=== PATIENT | female | born 1965 | race Caucasian/White ===

== ENCOUNTER 2017-07-25 08:19 | Emergency (ER) | payer OTHER ==
[2017-07-25 08:22] VITALS: BMI 31.1
--- NOTE | 2017-07-25 08:46 | PDOC ---
History of Present Illness - General Chief Complaint: Lightheaded Stated Complaint: DIZZY Time Seen by Provider: 07/25/17 08:45 Past History - Past Medical History Allergies/Adverse Reactions: Allergies Allergy/AdvReac Type Severity Reaction Status Date / Time No Known Allergies Allergy Verified 07/25/17 08:22 Home Medications: Ambulatory Orders Levothyroxine [Synthroid] 112 mcg PO DAILY 11/08/11 Albuterol Sulfate Inhaler - [Ventolin HFA Inhaler -] 2 inh PO Q4H #1 inh Ibuprofen [Motrin -] 600 mg PO TID #20 tablet 07/31/15 Oxycodone HCl/Acetaminophen [Percocet 5-325 mg Tablet -] 1 combo PO Q6H PRN #14 tablet MDD 8 tablets 07/31/15 Tamsulosin HCl [Flomax] 0.4 mg PO DAILY #7 capsule 07/31/15 Anemia: No Asthma: No Cancer: No Cardiac Disorders: No CVA: No COPD: No CHF: No Diabetes: No GI Disorders: No Disorders: No Thyroid Disease: Yes - Surgical History Cholecystectomy: Yes - Immunization History Immunization Up to Date: Yes - Suicide/Smoking/Psychosocial Hx Smoking Status: No Smoking History: Never smoked Years of Tobacco Use: 30 Number of Cigarettes Smoked Daily: 5 Hx Alcohol Use: No Drug/Substance Use Hx: No Substance Use Type: None *Physical Exam - Vital Signs Last Vital Signs Temp Pulse Resp BP Pulse Ox 98.1 F 74 18 136/76 99 07/25/17 08:20 07/25/17 08:20 07/25/17 08:20 07/25/17 08:20 07/25/17 08:20
--- NOTE | 2017-07-25 09:19 | PDOC ---
History of Present Illness <Marshall Richard - Last Filed: 07/25/17 11:46> - General History Source: Patient Exam Limitations: No Limitations - History of Present Illness Initial Comments: 07/25/17 11:49 The patient is a 52 year old female, with a significant past medical history of thyroid disease, who presents to the emergency department complaining of dizziness, palpitations, diaphoresis since waking this morning. She notes that the palpitations and diaphoresis has resolved but the dizziness has persisted. She describes her head as "heavy" that has since resolved. Pt notes her dizziness is a lightheadedness that is worse when she is laying down and turning to the left. She reports that she has noticed a decrease in appetite over the last 3 days. denies any vision changes, dysarthria, numbness/tingling/ weakness, neck pain, back pain. The patient denies chest pain, shortness of breath. Denies fever, chills, nausea , vomiting, diarrhea and constipation. Denies dysuria, frequency, urgency and hematuria. Allergies: None Past surgical history: Cholecystectomy Social History: (+)Tobacco use (30 year use). No alcohol or drug use reported <Oscar Zheng - Last Filed: 07/25/17 11:51> - General Chief Complaint: Lightheaded Stated Complaint: DIZZY Time Seen by Provider: 07/25/17 08:45 Past History - Past Medical History Anemia: No Asthma: No Cancer: No Cardiac Disorders: No CVA: No COPD: No CHF: No Diabetes: No GI Disorders: No Disorders: No Thyroid Disease: Yes - Surgical History Cholecystectomy: Yes - Immunization History Immunization Up to Date: Yes - Suicide/Smoking/Psychosocial Hx Smoking Status: No Smoking History: Never smoked Years of Tobacco Use: 30 Number of Cigarettes Smoked Daily: 5 Hx Alcohol Use: No Drug/Substance Use Hx: No Substance Use Type: None <Marshall Richard - Last Filed: 07/25/17 11:46> <Oscar Zheng - Last Filed: 07/25/17 11:51> - Past Medical History Allergies/Adverse Reactions: Allergies Allergy/AdvReac Type Severity Reaction Status Date / Time No Known Allergies Allergy Verified 07/25/17 08:22 Home Medications: Ambulatory Orders Levothyroxine [Synthroid] 112 mcg PO DAILY 11/08/11 Review of Systems - Review of Systems Able to Perform ROS?: Yes Comments:: 07/25/17 11:50 CONSTITUTIONAL: Reported: Diaphoresis No reported: Fever, Chills, Generalized Weakness, Malaise, Loss of Appetite HEENT: No reported: Rhinorrhea, Nasal Congestion, Throat Pain, Throat Swelling, Difficulty Swallowing, Mouth Swelling, Ear Pain, Eye Pain, Visual Changes CARDIOVASCULAR: Reported: Lightheadedness, palpitations No reported: Chest Pain, Syncope, Irregular Heart Rate, Peripheral Edema RESPIRATORY: No reported: Cough, Shortness of Breath, SOB with Exertion, Orthopnea, Wheezing , Stridor, Hemoptysis GASTROINTESTINAL: No reported: Abdominal pain, Abdominal Distension, Nausea, Vomiting, Diarrhea, Constipation, Melena, Hematochezia GENITOURINARY: No reported: Dysuria, Frequency, Urgency, Hesitancy, Flank Pain, Genital Pain MUSCULOSKELETAL: No reported: Myalgia, Arthralgia, Joint Swelling, Back pain, Neck Pain SKIN: No reported: Rash, Itching, Pallor HEMEATOLOGIC/IMMUNOLOGIC: No reported: Easy Bleeding, Easy Bruising, Lymphadenopathy, Frequent infections ENDOCRINE: No reported: Unexplained Weight Gain, Unexplained Weight Loss, Heat Intolerance , Cold Intolerance NEUROLOGIC: No reported: Headache, Focal Weakness, Paresthesias, Vertigo, Lightheadedness, Unsteady Gait, Seizure, Mental Status Changes, Incontinence PSYCHIATRIC: No reported: Anxiety, Depression <Oscar Zheng - Last Filed: 07/25/17 11:51> *Physical Exam - Vital Signs Last Vital Signs Temp Pulse Resp BP Pulse Ox 98.1 F 74 18 136/76 99 07/25/17 08:20 07/25/17 08:20 07/25/17 08:20 07/25/17 08:20 07/25/17 08:20 <Marshall Richard - Last Filed: 07/25/17 11:46> - Vital Signs Last Vital Signs Temp Pulse Resp BP Pulse Ox 98.1 F 74 18 136/76 99 07/25/17 08:20 07/25/17 08:20 07/25/17 08:20 07/25/17 08:20 07/25/17 08:20 - Physical Exam Comments: 07/25/17 11:50 GENERAL: The patient is awake, alert, and fully oriented, Nontoxic - in no acute distress. HEAD: Normocephalic, atraumatic. EYES: extraocular movements intact, sclera anicteric, conjunctiva clear, visual soriano intact ENT: Normal voice, Moist mucous membranes. NECK: Normal range of motion, supple LUNGS: Breath sounds equal, clear to auscultation bilaterally. No wheezes, no rhonchi, no rales. HEART: Regular rate and rhythm, without murmur, rub or gallop. ABDOMEN: Soft, nontender, normoactive bowel sounds. No guarding, no rebound.No CVA tenderness EXTREMITIES: Normal range of motion, no edema. No clubbing or cyanosis. No cords, erythema, or tenderness. PSYCH: Normal mood, normal affect. SKIN: Warm, Dry, normal turgor NEURO: Mental status: The patient is oriented x3. Cranial nerves: Cranial nerves II through XII are intact Motor: The upper extremities are 5 over 5 in all muscle groups. The lower extremities are 5 over 5 in all muscle groups. Negative pronator drift Sensation: Sensation is intact to light touch throughout. romberg negative Cerebellar: Mwokxx-[id number]-ktdj is normal in both upper extremities. rapid alternating movements are normal. Gait: Normal. H <Oscar Zheng - Last Filed: 07/25/17 11:51> Heart Score/ECG Review - ECG Impressions Comment:: 07/25/17 10:26 Twelve-lead EKG was performed and reviewed by me. There is normal sinus rhythm with a normal rate. Rate of 66 The axis is normal. The intervals are normal. nonspecific TWI in lead III <Marshall Richard - Last Filed: 07/25/17 11:46> ED Treatment Course - LABORATORY CBC & Chemistry Diagram: 07/25/17 09:40 07/25/17 09:40 <Marshall Richard - Last Filed: 07/25/17 11:46> - LABORATORY CBC & Chemistry Diagram: 07/25/17 09:40 07/25/17 09:40 - ADDITIONAL ORDERS Additional order review: Laboratory Results 07/25/17 07/25/17 07/25/17 10:54 09:40 09:40 Sodium 141 Potassium 4.2 Chloride 106 Carbon Dioxide 26 Anion Gap 9 BUN 10 Creatinine 0.6 Creat Clearance w eGFR > 60 Random Glucose 90 Calcium 8.8 Total Bilirubin 0.4 D AST 18 ALT 19 Alkaline Phosphatase 66 Total Protein 7.4 Albumin 3.6 TSH 11.50 H Urine Color Straw Urine Appearance Clear Urine pH 5.0 Ur Specific [place] 1.009 Urine Protein Negative Urine Glucose (UA) Negative Urine Ketones Negative Urine Blood 2+ H Urine Nitrite Negative Urine Bilirubin Negative Urine Urobilinogen Negative Ur Leukocyte Esterase Negative Urine WBC (Auto) 2 Urine RBC (Auto) 2 Ur Epithelial Cells Rare Urine Mucus Rare 07/25/17 09:40 RBC 4.25 MCV 69.0 L MCHC 30.9 L RDW 17.9 H D MPV 7.2 L Neutrophils % 63.6 Lymphocytes % 27.7 D Monocytes % 5.7 Eosinophils % 1.8 Basophils % 1.2 - Medications Given in the ED: ED Medications Discontinued Medications Generic Name Dose Route Start Last Admin Trade Name Freq PRN Reason Stop Dose Admin Sodium Chloride 1,000 mls @ 1,000 mls/hr 07/25/17 09:34 07/25/17 09:46 Normal Saline - IV 07/25/17 10:33 1,000 mls/hr .Q1H ONE Administration Ibuprofen 400 mg 07/25/17 11:32 07/25/17 11:40 Motrin - PO 07/25/17 11:33 Not Given ONCE ONE Meclizine HCl 25 mg 07/25/17 10:02 07/25/17 10:18 Antivert - PO 07/25/17 10:03 25 mg ONCE ONE Administration Metoclopramide HCl 10 mg 07/25/17 09:34 07/25/17 09:46 Reglan Injection - IVPUSH 07/25/17 09:35 10 mg ONCE ONE Administration <Oscar Zheng - Last Filed: 07/25/17 11:51> Medical Decision Making - Medical Decision Making 07/25/17 09:19 52y Fhx of thryoid disease, fibroids, presents feeling dizzy since wakening up this morning appro x 3 hrs ago, pt endorses some palpitations, nausea, earlier but that has resolved. endorse some head heaviness that has also resolved. denies an cp, sob, abd pain, vomiting, diarrhea, melena. dizziness is worse when she is laying down and turning her head, but is asypmtomatic currently if sitting in bed. pt was asypmtomatic the past few days without any uri, tinnitus. pts exam is unremarkable including a normal neuro exam suspect peripheral vertigo will ck lbas to r/o anemia, metabolic dernagement will give fluids, meclizine, zofran ua to r/o uti will reassess A portion of this note was documented by scribe services under my direction. I have reviewed the details of the note, within reason, and agree with the documentation with the following case summary and management plan written by me 07/25/17 11:46 The patient's blood work was reviewed it is noted for anemia to 9.1. The patient's blood work otherwise unremarkable, there is 2+ hematuria The patient is feeling improved she is able to ambulate without an ataxic gait or any lightheadedness. We'll discharge patient to follow up with her primary care doctor return precautions were discussed I discussed the physical exam findings, ancillary test results and final diagnoses with the patient. I answered all of the patient's questions. The patient was satisfied with the care received and felt comfortable with the discharge plan and treatment plan. The patient will call their primary care physician within 24 hours to arrange follow-up and will return to the Emergency Department with any new, persistent or worsening symptoms. <Marshall Richard - Last Filed: 07/25/17 11:46> *DC/Admit/Observation/Transfer - Discharge Dispostion Admit: No <Marshall Richard - Last Filed: 07/25/17 11:46> - Attestations Scribe Attestion: 07/25/17 11:50 Documentation prepared by Oscar Zheng, acting as medical staff coordinator for Marshall Richard MD <Oscar Zheng - Last Filed: 07/25/17 11:51> Diagnosis at time of Disposition: Vertigo Anemia Qualifiers: Anemia type: other cause Other causes of anemia: other cause, not classified Qualified Code(s): D64.89 - Other specified anemias - Discharge Dispostion Disposition: HOME Condition at time of disposition: Improved - Referrals Referrals: Landen Marie MD [Staff Physician] - Christal Perez MD [Staff Physician] - Cody Cordero MD [Staff Physician] - - Patient Instructions Printed Discharge Instructions: DI for Vertigo Additional Instructions: Return to the emergency department immediately with ANY new, persistent or worsening symptoms. Your blood work is notable for anemia I suspect this may be due to her heavy periods please follow-up with [facility] doctor. If the meclizine as needed for your dizziness You MUST call and follow up with your doctor tomorrow for further evaluation of your symptoms. Results were discussed with you. Please make sure your doctor reviews the results of your emergency evaluation. Print Language: GREENLANDIC
[2017-07-25] MEDS ORDERED: METOCLOPRAMIDE HCL INJECTION 10 MG/2 ML VIAL IVPUSH ONE (09:34)
[2017-07-25] MEDS ORDERED: SODIUM CHLORIDE 1,000 ML IV ONE (09:34)
[2017-07-25] MEDS ORDERED: METOCLOPRAMIDE HCL INJECTION 10 MG/2 ML VIAL ONE (09:47)
[2017-07-25 09:52] LABS: BASO % 1.2 % (0-2.0); EOS % 1.8 % (0-4.5); HEMATOCRIT 29.4 % (32.4-45.2); HEMOGLOBIN 9.1 GM/dL (10.7-15.3); LYMPH % 27.7 % (8-40); MCH 21.3 pg (25.7-33.7); MCHC 30.9 g/dl (32.0-36.0); MEAN PLT VOLUME 7.2 fl (7.5-11.1); MONO % 5.7 % (3.8-10.2); NEUT % 63.6 % (42.8-82.8); PLATELET COUNT 344 K/MM3 (134-434); RBC 4.25 M/mm3 (3.60-5.2); RDW 17.9 % (11.6-15.6); WHITE BLOOD COUNT 7.1 K/mm3 (4.0-10.0)
[2017-07-25] MEDS ORDERED: MECLIZINE HCL 25 MG TABLET (FP) PO ONE (10:02)
[2017-07-25] MEDS ORDERED: MECLIZINE HCL 25 MG TABLET (FP) ONE (10:14)
[2017-07-25 10:21] LABS: ALBUMIN 3.6 g/dl (3.4-5.0); ALK PHOS 66 U/L (45-117); ANION GAP 9 (8-16); BILIRUBIN,TOTAL 0.4 mg/dL (0.2-1.0); BLOOD UREA NITROGEN 10 mg/dL (7-18); CALCIUM 8.8 mg/dL (8.5-10.1); CHLORIDE 106 mmol/L (98-107); CO2 26 mmol/L (21-32); CREATININE 0.6 mg/dL (0.55-1.02); POTASSIUM 4.2 mmol/L (3.5-5.1); SGOT/AST 18 U/L (15-37); SGPT/ALT 19 U/L (12-78); SODIUM 141 mmol/L (136-145); TOT PROT 7.4 g/dl (6.4-8.2)
[2017-07-25 11:11] LABS: URINE APPEARANCE CLEAR; URINE BILIRUBIN NEGATIVE (<2.0 mg/dL); URINE BLOOD 2+ (NEGATIVE); URINE COLOR STRAW; URINE GLUCOSE (UA) NEGATIVE (NEGATIVE); URINE KETONE NEGATIVE (NEGATIVE); URINE LEUK ESTERASE NEGATIVE (NEGATIVE); URINE NITRITE NEGATIVE (NEGATIVE); URINE PROTEIN NEGATIVE (NEGATIVE); URINE UROBILINOGEN NEGATIVE mg/dL (0.2-1.0)
[2017-07-25 11:17] LABS: EPI CELLS RARE /HPF (FEW); URINE MUCUS RARE
[2017-07-25 11:21] LABS: GLUCOSE,RANDOM 90 mg/dL (74-106)
[2017-07-25] MEDS ORDERED: IBUPROFEN 400 MG TABLET (FP) PO ONE ×2 (11:32→11:39)
[2017-07-25 12:16] VITALS: BP 102/74; PULSE 64; TEMP 98
--- NOTE | 2017-07-26 21:40 | EKG ---
Test Reason : Blood Pressure : / mmHG Vent. Rate : 066 BPM Atrial Rate : 066 BPM P-R Int : 156 ms QRS Dur : 084 ms QT Int : 436 ms P-R-T Axes : 043 014 009 degrees QTc Int : 457 ms NORMAL SINUS RHYTHM NORMAL ECG WHEN COMPARED WITH ECG OF 16-JAN-2012 11:02, VENT. RATE HAS DECREASED BY 34 BPM Confirmed by HAO TRUJILLO MD ([id number]) on 07/26/2017 9:40:20 PM Referred By: Confirmed By:HAO TRUJILLO MD
== END 2017-07-25 12:16 | disposition home or self-care (01) ==
LOC: JER 08:19
PROC: 3E033GC Introduction of Other Therapeutic Substance into Peripheral Vein, Percutaneous Approach (ICD-10-PCS; principal; 2017-07-25)
DX: H81.399 Other peripheral vertigo, unspecified ear (principal); R11.0 Nausea
CPT/HCPCS: 36415; 80053; 81003; 81015; 84443; 85025; 93005; 93010; 99282-25; J7030

== ENCOUNTER 2017-09-23 14:17 | Emergency (ER) | payer OTHER ==
--- NOTE | 2017-09-23 14:28 | PDOC ---
Rapid Medical Evaluation Time Seen by Provider: 09/23/17 14:26 Medical Evaluation: Allergies Allergy/AdvReac Type Severity Reaction Status Date / Time No Known Allergies Allergy Verified 07/25/17 08:22 09/23/17 14:26 I have performed a brief in-person evaluation of this patient. The patient presents with a chief complaint of:facial redness and burning today after using new facial mask today, no sob Pertinent physical exam findings:minimal erythema to cheeks b/l, no facial swelling I have ordered the following:nothing The patient will proceed to the ED for further evaluation. 09/23/17 14:39 Discharge Disposition - Diagnosis Allergic reaction Qualifiers: Encounter type: initial encounter Qualified Code(s): T78.40XA - Allergy, unspecified, initial encounter - Discharge Dispostion Disposition: ELOPED Condition at time of disposition: Good - Referrals - Patient Instructions Printed Discharge Instructions: DI for General Allergic Reactions Additional Instructions: Your symptoms are most likely from the anti-aging cream you used. Please refrain from cream and take Benadryl and Tylenol as needed - Post Discharge Activity
[2017-09-23 14:30] VITALS: BP 134/68; PULSE 77; TEMP 97.7; BMI 22.9
--- NOTE | 2017-09-23 14:36 | PDOC ---
History of Present Illness - General Stated Complaint: ALLERGIC REACTION Time Seen by Provider: 09/23/17 14:26 History Source: Patient - History of Present Illness Timing/Duration: reports: just prior to arrival Location: reports: face Past History - Past Medical History Allergies/Adverse Reactions: Allergies Allergy/AdvReac Type Severity Reaction Status Date / Time No Known Allergies Allergy Verified 07/25/17 08:22 Home Medications: Ambulatory Orders Levothyroxine [Synthroid] 112 mcg PO DAILY 11/08/11 Anemia: No Asthma: No Cancer: No Cardiac Disorders: No CVA: No COPD: No CHF: No Diabetes: No GI Disorders: No Disorders: No Thyroid Disease: Yes - Surgical History Cholecystectomy: Yes - Immunization History Immunization Up to Date: Yes - Suicide/Smoking/Psychosocial Hx Smoking Status: No Smoking History: Never smoked Years of Tobacco Use: 30 Number of Cigarettes Smoked Daily: 5 Hx Alcohol Use: No Drug/Substance Use Hx: No Substance Use Type: None Review of Systems - Review of Systems Constitutional: No: Chills, Fever HEENTM: No: Throat Pain, Throat Swelling Respiratory: No: Shortness of Breath, Wheezing Cardiac (ROS): No: Chest Pain Integumentary: Yes: Rash. No: Pruritus *Physical Exam - Physical Exam General Appearance: Yes: Appropriately Dressed. No: Apparent Distress HEENT: positive: Normal Voice, Other (minimal erythema to checks b/l, no obvious swelling) Neck: positive: Supple. negative: Stridor Respiratory/Chest: positive: Lungs Clear, Normal Breath Sounds. negative: Respiratory Distress Integumentary: positive: Dry, Warm Neurologic: positive: Fully Oriented, Alert, Normal Mood/Affect Medical Decision Making - Medical Decision Making 09/23/17 14:31 52 yo F, no sig hx, here w/ stinging pain to face that started immediately after using new anti-aging facial mask today. No itching, swelling, throat tightness or sob. No known allergies. Pt well leticia and stable w/ minimal erythema to cheeks b/l. No intervention needed in ED. Explained to pt that new agent most likely source of sxs. To take tylenol prn and benadryl and return for worsening of sxs 09/23/17 14:36 Pt asked "aren't you gonna do anything else for me?" I explained to pt that she has a very mild adverse rxn 2/2 facial mask and that we can give her first dose of Tylenol here for discomfort. Pt then walked out to ER without being registered or without discharge papers *DC/Admit/Observation/Transfer Diagnosis at time of Disposition: Allergic reaction Qualifiers: Encounter type: initial encounter Qualified Code(s): T78.40XA - Allergy, unspecified, initial encounter - Discharge Dispostion Disposition: ELOPED Condition at time of disposition: Good - Referrals - Patient Instructions Printed Discharge Instructions: DI for General Allergic Reactions Additional Instructions: Your symptoms are most likely from the anti-aging cream you used. Please refrain from cream and take Benadryl and Tylenol as needed - Post Discharge Activity
== END 2017-09-23 15:12 | disposition left against medical advice (07) ==
LOC: JER 14:17 → JERFT 14:17 → JER 15:12
DX: T78.40XA Allergy, unspecified, initial encounter (principal); E07.9 Disorder of thyroid, unspecified
CPT/HCPCS: 99281-25

== ENCOUNTER 2019-02-10 02:45 | Emergency (ER) | payer BC, OTHER ==
--- NOTE | 2019-02-10 03:00 | PDOC ---
History of Present Illness - General Stated Complaint: LOW BACK CRAMPS - History of Present Illness Initial Comments: The pt is a 57F w/ a history of hypothyroidism and nephrolithiasis who presents for evaluation of 5 hours of right back/flank pain. The pain is cramping, constant, radiates to her right flank, and is associated with nausea. She tried taking ibuprofen with minimal relief. She denies fevers/chills, vomiting, chest pain, trouble breathing, dizziness, abdominal pain, dysuria, hematuria, diarrhea , or blood in her stool. 02/10/19 03:32 Past History - Past Medical History Allergies/Adverse Reactions: Allergies Allergy/AdvReac Type Severity Reaction Status Date / Time No Known Allergies Allergy Verified 02/10/19 03:25 Home Medications: Ambulatory Orders Levothyroxine [Synthroid] 125 mcg PO DAILY 11/08/11 Anemia: No Asthma: No Cancer: No Cardiac Disorders: No CVA: No COPD: No CHF: No Diabetes: No GI Disorders: No Disorders: No Thyroid Disease: Yes (hypothyroid) - Surgical History Abdominal Surgery: No Appendectomy: No Cardiac Surgery: No Cholecystectomy: Yes Gastric Stapling: No GI Surgery: No - Immunization History Immunization Up to Date: Yes - Psycho Social/Smoking Cessation Hx Smoking Status: No Smoking History: Never smoked Years of Tobacco Use: 30 Number of Cigarettes Smoked Daily: 5 Hx Alcohol Use: No Drug/Substance Use Hx: No Substance Use Type: None Review of Systems - Review of Systems Able to Perform ROS?: Yes Comments:: GENERAL/CONSTITUTIONAL: No fever or chills. No weakness HEAD, EYES, EARS, NOSE AND THROAT: No change in vision. No change in hearing. No sore throat CARDIOVASCULAR: No chest pain or shortness of breath RESPIRATORY: Denies cough, hemoptysis GASTROINTESTINAL: No nausea, vomiting, diarrhea or constipation GENITOURINARY: No dysuria, frequency, or change in urination MUSCULOSKELETAL: No joint or muscle swelling or pain SKIN: No rash NEUROLOGIC: No headache, vertigo, loss of consciousness, or change in strength/ sensation ENDOCRINE: No increased thirst. No abnormal weight change HEMATOLOGIC/LYMPHATIC: No anemia, easy bleeding, or history of blood clots ALLERGIC/IMMUNOLOGIC: No hives or skin allergy 02/10/19 02:59 Is the patient limited Urdu proficient: No *Physical Exam - Vital Signs Vital Signs Period Temp Pulse Resp BP Sys/Sparks Pulse Ox Last 24 Hr 98.0 F 60 18 142/87 100 02/10/19 03:33 - Physical Exam Comments: GENERAL: Awake, alert, and oriented to person/place/time, in no acute distress HEAD: No signs of trauma, normocephalic, atraumatic EYES: PERRLA, EOMI, sclera anicteric, conjunctiva clear ENT: Hearing grossly normal, nares patent, oropharynx clear without exudates. Moist mucosa LUNGS: No distress, speaks in full sentences, clear to auscultation bilaterally HEART: Regular rate and rhythm, normal S1 and S2, no murmurs appreciated, peripheral pulses normal and equal bilaterally ABDOMEN: Soft, nontender, normoactive bowel sounds. No guarding, no rebound. No CVA TTP EXTREMITIES: Normal inspection, Normal range of motion, no edema. No clubbing or cyanosis NEUROLOGICAL: Cranial nerves II through XII grossly intact. Normal speech, no focal sensorimotor deficits SKIN: Warm, Dry 02/10/19 02:59 ED Treatment Course - LABORATORY CBC & Chemistry Diagram: 02/10/19 04:10 02/10/19 04:10 Medical Decision Making - Medical Decision Making The pt is a 57F w/ a history of hypothyroidism and nephrolithiasis who presents for evaluation of 5 hours of right back/flank pain. ED Course CMP, CBC, UA, UCx CT Spiral IVF, Zofran, Morphine for symptomatic relief 02/10/19 03:34 CT w/o nephrolithiasis, significant for fibroids -Results discussed w/ pt Plan for D/C w/ OB f/u Discharge instructions and return precautions given Pt in agreement and verbalized understanding home Dipso: home 02/10/19 05:46 Discharge - Discharge Information Problems reviewed: Yes Clinical Impression/Diagnosis: Dysmenorrhea Back pain Qualifiers: Back pain location: low back pain Chronicity: acute Back pain laterality: right Sciatica presence: without sciatica Qualified Code(s): M54.5 - Low back pain Condition: Stable Disposition: HOME - Admission No - Follow up/Referral Referrals: Cristin Maria MD [Staff Physician] - - Patient Discharge Instructions Patient Printed Discharge Instructions: DI for Dysmenorrhea Additional Instructions: You were seen in the Emergency Department for evaluation of lower back pain and right flank pain. Your CT was significant for uterine fibroids. You do not have a kidney stone. Review the handout provided at discharge. Follow up with your OBGYN or referral given. For pain you may take Tylenol 650mg every 6 hours and Ibuprofen 600mg every 6-8 hours, alternating them each time. Return to the Emergency Department if you develop fevers/chills, chest pain, trouble breathing, vomiting, dizziness, worsening symptoms, or any new/ concerning symptoms. - Post Discharge Activity
--- NOTE | 2019-02-10 03:05 | PDOC ---
Attending Attestation - Resident Resident Name: ZenobiaChristoph gregory - ED Attending Attestation I have performed the following: I have examined & evaluated the patient, The case was reviewed & discussed with the resident, I agree w/resident's findings & plan - HPI HPI: 02/10/19 05:55 see resident hpi - Physicial Exam PE: 02/10/19 05:56 agree with resident exam - Medical Decision Making 02/10/19 05:56 54-year-old female complaining of low back pain radiating to the pelvis CT scan consistent with fibroid uterus, no renal/ureteral lithiasis noted Patient given morphine and Toradol in the emergency department She will be discharged with recommended PERSONNEL REPRESENTATIVE follow-up
[2019-02-10] MEDS ORDERED: morphine CARPU-JECT 4 MG/1 ML DISP.SYRIN IVPUSH ONE (03:31)
[2019-02-10] MEDS ORDERED: SODIUM CHLORIDE 0.9% 500 ML INFUS.BAG IV ONE (03:31)
[2019-02-10] MEDS ORDERED: ONDANSETRON 4 MG/2 ML VIAL IVPUSH ONE (03:31)
[2019-02-10] MEDS ORDERED: morphine SULFATE 4 MG/ML VIAL ONE (03:44)
[2019-02-10] MEDS ORDERED: ONDANSETRON 4 MG/2 ML VIAL ONE (03:44)
[2019-02-10 04:19] VITALS: BP 142/87; PULSE 60; TEMP 98; BMI 29.2
[2019-02-10 04:28] LABS: EPI CELLS 4.5 /HPF (0-5/HPF); HYALINE CASTS 1 /lpf (0-8); PH,URINE 5.5 (5.0-8.0); URINE APPEARANCE CLOUDY; URINE BACTERIA 0.2 /hpf (NEGATIVE); URINE BILIRUBIN NEGATIVE (NEGATIVE); URINE COLOR RED; URINE GLUCOSE (UA) NEGATIVE (NEGATIVE); URINE KETONE NEGATIVE (NEGATIVE); URINE LEUK ESTERASE 1+ (NEGATIVE); URINE NITRITE NEGATIVE (NEGATIVE); URINE PROTEIN TRACE (NEGATIVE); URINE RBC 3576 /hpf (0-4); URINE UROBILINOGEN 0.2 mg/dL (0.2-1.0); URINE WBC 16 /hpf (0-5)
[2019-02-10 05:03] LABS: BASO % 0.7 % (0-2.0); EOS % 2.8 % (0-4.5); HEMATOCRIT 34.5 % (32.4-45.2); HEMOGLOBIN 10.6 GM/dL (10.7-15.3); LYMPH % 26.3 % (8-40); MCH 22.8 pg (25.7-33.7); MCHC 30.7 g/dl (32.0-36.0); MEAN CELL VOLUME 74.1 fl (80-96); MEAN PLT VOLUME 7.9 fl (7.5-11.1); MONO % 6.9 % (3.8-10.2); NEUT % 63.3 % (42.8-82.8); PLATELET COUNT 370 K/MM3 (134-434); RBC 4.65 M/mm3 (3.60-5.2); WHITE BLOOD COUNT 8.1 K/mm3 (4.0-10.0)
[2019-02-10 05:39] LABS: ALBUMIN 3.8 g/dl (3.4-5.0); BILIRUBIN,TOTAL 0.3 mg/dL (0.2-1); CALCIUM 8.8 mg/dL (8.5-10.1); CREATININE 0.7 mg/dL (0.55-1.3); POTASSIUM 3.7 mmol/L (3.5-5.1); TOT PROT 7.7 g/dl (6.4-8.2)
[2019-02-10] MEDS ORDERED: KETOROLAC TROMETHAMINE 15 MG/ML VIAL IVPUSH ONE (05:55)
[2019-02-10] MEDS ORDERED: KETOROLAC TROMETHAMINE 15 MG/ML VIAL ONE (05:56)
== END 2019-02-10 06:01 | disposition home or self-care (01) ==
LOC: JER 02:45
PROC: 3E0337Z Introduction of Electrolytic and Water Balance Substance into Peripheral Vein, Percutaneous Approach (ICD-10-PCS; principal; 2019-02-10)
PROC: 3E033NZ Introduction of Analgesics, Hypnotics, Sedatives into Peripheral Vein, Percutaneous Approach (ICD-10-PCS; 2019-02-10)
PROC: 3E033GC Introduction of Other Therapeutic Substance into Peripheral Vein, Percutaneous Approach (ICD-10-PCS; 2019-02-10)
DX: M54.5 Low back pain (principal); N94.6 Dysmenorrhea, unspecified; E03.9 Hypothyroidism, unspecified; N20.0 Calculus of kidney
CPT/HCPCS: 36415; 74176-TC; 80053; 81003; 85025; 87086; 99283-25

== ENCOUNTER 2022-02-25 04:20 | Day surgery (SDC) | payer BC ==
[2022-02-21 16:46] VITALS: BMI 30.7
[2022-02-25] MEDS ORDERED: MIDAZOLAM HCL 2 MG/2 ML SINGLE DOSE VIAL ONE (10:24)
[2022-02-25] MEDS ORDERED: KETOROLAC TROMETHAMINE 30 MG/1 ML VIAL ONE (11:00)
[2022-02-25] MEDS ORDERED: ONDANSETRON 4 MG/2 ML VIAL ONE (11:00)
[2022-02-25] MEDS ORDERED: DEXAMETHASONE SOD PHOSPHATE 4 MG/1 ML VIAL ONE (11:00)
[2022-02-25] MEDS ORDERED: PROPOFOL 20 ML ONE (11:13)
[2022-02-25] MEDS ORDERED: oxyCODONE HCL 5 MG TABLET PO PRN (11:24)
[2022-02-25] MEDS ORDERED: IBUPROFEN 800 MG/8 ML IJ IVPB PRN (11:24)
[2022-02-25] MEDS ORDERED: IBUPROFEN 600 MG TABLET (FP) PO PRN (11:24)
[2022-02-25] MEDS ORDERED: ONDANSETRON 4 MG/2 ML VIAL IVPUSH PRN (11:24)
[2022-02-25] MEDS ORDERED: ELECTROLYTE-148 SOLN 1,000 ML IV SCH (11:30)
[2022-02-25] MEDS ORDERED: LACTATED RINGERS SOLUTION 1,000 ML IV SCH (12:15)
[2022-02-25 12:54] VITALS: RESP 18
[2022-02-25 13:32] VITALS: BP 127/76; PULSE 65; TEMP 97.6
== END 2022-02-25 13:37 | disposition home or self-care (01) ==
LOC: JASU-SURG 04:20
PROVIDERS: ATTEND Obstetrics & Gynecology
PROC: 0UJD8ZZ Inspection of Uterus and Cervix, Via Natural or Artificial Opening Endoscopic (ICD-10-PCS; 2022-02-25)
PROC: 0UDB7ZX Extraction of Endometrium, Via Natural or Artificial Opening, Diagnostic (ICD-10-PCS; principal; 2022-02-25 10:30)
DX: N95.0 Postmenopausal bleeding (principal); D25.9 Leiomyoma of uterus, unspecified
CPT/HCPCS: 81025; 88305-TC; 94760